=== PATIENT | male | born 1970 | race Caucasian/White ===

== ENCOUNTER 2018-04-15 21:36 | Emergency (ER) | payer SELFPAY ==
[~2018-04-15] VITALS: Ht 182.9 cm; Wt 69.0 kg
[~2018-04-15 21:36] MED LIST: BACT800T5 PO
[2018-04-15 21:45] VITALS: BP 163/100; PULSE 111; RESP 18; TEMP 98.7
[2018-04-15] MEDS ORDERED: SODIUM CHLOR 0.9% 1000 ML INJ 1,000 ML IV ONE (22:10)
--- NOTE | 2018-04-15 22:11 | PD ---
HPI Chief Complaint: Fall Time Seen by Provider: 21:51 Travel History International Travel<30 days: No Contact w/Intl Traveler<30days: No Traveled to known affect area: No History of Present Illness HPI 47-year-old male with history of hypertension, alcohol dependence, seizures in the past related to alcohol withdrawal, presents emergency department by [facility] for evaluation following a witnessed fall and possible seizure-like activity. Patient did strike his head. He does not recall the incident. He reports no pain. He reports no nausea, vomiting, focal deficits, or weakness. Patient states he did not drink alcohol today because he was working. He denies any other illicit drug use. He has no other symptoms to report at this time. FOR[facility]LY [facility] Past Medical History Cardiovascular Problems: Yes (HTN) Diabetes: No Patient Takes Glucophage: No Diminished Hearing: No Hypertension: Yes Immunizations Current: Yes Seizures: Yes Tetanus Vaccination: Unknown Influenza Vaccination: No Past Surgical History Tonsillectomy: Yes Social History Alcohol Use: Yes (SOCIAL) Tobacco Use: No Substance Use: Yes (HX CANNABIS) Allergies-Medications (Allergen,Severity, Reaction): Coded Allergies: No Known Allergies (Verified Adverse Reaction, Unknown, 04/15/18) Reported Meds & Prescriptions Reported Meds & Active Scripts Active No Active Prescriptions or Reported Medications Review of Systems Except as stated in HPI: all other systems reviewed are Neg Physical Exam Narrative GENERAL: Well-nourished male patient in no acute distress. Patient is oriented 3. SKIN: Focused skin assessment warm/dry. HEAD: Atraumatic. Normocephalic. EYES: Pupils equal. Left pupil is misshapen. No scleral icterus. No injection or drainage. EOMI ENT: No nasal bleeding or discharge. Mucous membranes pink and moist. NECK: Trachea midline. No JVD. Cervical collar is in place CARDIOVASCULAR: Tachycardic rate and rhythm. No murmur appreciated. RESPIRATORY: No accessory muscle use. Clear to auscultation. Breath sounds equal bilaterally. GASTROINTESTINAL: Abdomen soft, non-tender, nondistended. Hepatic and splenic margins not palpable. MUSCULOSKELETAL: No obvious deformities. No clubbing. No cyanosis. No edema. 5+ strength equal bilateral extremities. Sensation intact distal extremities. NEUROLOGICAL: Awake and alert. No obvious cranial nerve deficits. Motor grossly within normal limits. Normal speech. Data Data Last Documented VS Vital Signs Date Time Temp Pulse Resp B/P (MAP) Pulse Ox O2 Delivery O2 Flow Rate FiO2 04/15/18 21:45 98.7 111 18 163/100 (121) Orders Orders Complete Blood Count With Diff (04/15/18 22:10) Alcohol (Ethanol) (04/15/18 22:10) Drug Screen, Random Urine (04/15/18 22:10) Electrocardiogram (04/15/18 ) Ct Brain W/O Iv Contrast(Rout) (04/15/18 ) Blood Glucose (04/15/18 22:10) Ecg Monitoring (04/15/18 22:10) Iv Access Insert/Monitor (04/15/18 22:10) Oximetry (04/15/18 22:10) Comprehensive Metabolic Panel (04/15/18 22:10) Sodium Chlor 0.9% 1000 Ml Inj (Ns 1000 M (04/15/18 22:10) Sodium Chloride 0.9% Flush (Ns Flush) (04/15/18 22:15) Ct Cerv Spine W/O Contrast (04/15/18 ) Labs Laboratory Tests Test 04/15/18 22:19 MDM Medical Decision Making Medical Screen Exam Complete: Yes Emergency Medical Condition: Yes Medical Record Reviewed: Yes Differential Diagnosis Electrolyte abnormality versus cardiac etiology versus minor head injury versus intracranial hemorrhage versus seizure disorder versus alcohol withdrawal Narrative Course 47-year-old male presents emergency department for evaluation following a witnessed fall with possible seizure-like activity. Patient does not recall the event. He is oriented 3 moves all extremities with no focal deficits or weakness. Imaging study and basic lab work is ordered. 2300 patient is signed out to my attending physician who will assume complete care at this time. Disposition will depend her judgment. Scripts No Active Prescriptions or Reported Meds Condition: Jagjit MessinaShelli pugh ALIZE April 15, 2018 22:11
[2018-04-15] MEDS ORDERED: SODIUM CHLORIDE 0.9% FLUSH 10 ML FLUSH IVF PRN (22:15)
[2018-04-15 22:38] LABS: BASOPHIL # 0.1 TH/MM3 (0-0.2); BASOPHIL % 1.1 % (0.0-2.0); EOSINOPHIL % 0.3 % (0.0-4.0); HEMATOCRIT 43.7 % (39.0-51.0); LYMPH % 9.4 % (9.0-44.0); MEAN CELL VOLUME 94.4 FL (80.0-100.0); MEAN CORPUSCULAR HEMOGLOBIN 32.3 PG (27.0-34.0); MEAN CORPUSCULAR HGB CONC 34.2 % (32.0-36.0); MONO % 8.6 % (0.0-8.0); NEUT % 80.6 % (16.0-70.0); PLATELET COUNT 171 TH/MM3 (150-450); RED BLOOD COUNT 4.63 MIL/MM3 (4.50-5.90); RED CELL DISTRIBUTION WIDTH 14.5 % (11.6-17.2); WHITE BLOOD COUNT 11.2 TH/MM3 (4.0-11.0)
[2018-04-15 22:57] LABS: ALT (GPT) 177 U/L (12-78); AST (GOT) 147 U/L (15-37); BICARBONATE 23.4 MEQ/L (21.0-32.0); BLOOD UREA NITROGEN 9 MG/DL (7-18); CALCIUM 9.6 MG/DL (8.5-10.1); CHLORIDE 94 MEQ/L (98-107); CREATININE 0.95 MG/DL (0.60-1.30); GLOMERULAR FILTRATION RATE 85 ML/MIN (>89); GLUCOSE,RANDOM 100 MG/DL (74-106); SODIUM (NA) 133 MEQ/L (136-145)
[2018-04-15 23:00] LABS: ALKALINE PHOSPHATASE 49 U/L (45-117); TOTAL BILIRUBIN ADULT 1.8 MG/DL (0.2-1.0); TOTAL PROTEIN 8.1 GM/DL (6.4-8.2)
--- NOTE | 2018-04-15 23:29 | RADRPT ---
EXAM DATE/TIME: 04/15/2018 23:07 [facility] COMPARISON: No previous studies available for comparison. INDICATIONS : Trauma, seizure, fall. RADIATION DOSE: 56.35 CTDIvol (mGy) MEDICAL HISTORY : Seizures. Hypertension. SURGICAL HISTORY : None. ENCOUNTER: Initial ACUITY: 1 day PAIN SCALE: 5/10 LOCATION: cranial TECHNIQUE: Multiple contiguous axial images were obtained of the head. Using automated exposure control and adj ustment of the mA and/or kV according to patient size, radiation dose was kept as low as reasonably a chievable to obtain optimal diagnostic quality images. DICOM format image data is available electro nically for review and comparison. FINDINGS: CEREBRUM: The ventricles are normal for age. No evidence of midline shift, mass lesion, hemorrhage or acute in farction. No extra-axial fluid collections are seen. POSTERIOR FOSSA: The cerebellum and brainstem are intact. The 4th ventricle is midline. The cerebellopontine angle i s unremarkable. EXTRACRANIAL: The visualized portion of the orbits is intact. SKULL: The calvaria is intact. No evidence of skull fracture. CONCLUSION: Normal examination for a patient of this age. Logan Saucedo MD on April 15, 2018 at 23:26 Board Certified Radiologist. This report was verified electronically.
--- NOTE | 2018-04-15 23:31 | RADRPT ---
EXAM DATE/TIME: 04/15/2018 23:07 [facility] COMPARISON: No previous studies available for comparison. INDICATIONS : Trauma, seizure, fall. RADIATION DOSE: 18.00 CTDIvol (mGy) MEDICAL HISTORY : Seizures. Hypertension. SURGICAL HISTORY : None. ENCOUNTER: Initial ACUITY: 1 day PAIN SCALE: 5/10 LOCATION: neck TECHNIQUE: Volumetric scanning of the cervical spine was performed. Multiplanar reconstructions in the sagittal, coronal and oblique axial planes were performed. Using automated exposure control and adjustment o f the mA and/or kV according to patient size, radiation dose was kept as low as reasonably achievable to obtain optimal diagnostic quality images. DICOM format image data is available electronically f or review and comparison. FINDINGS: VERTEBRAE: Normal vertebral body height. ALIGNMENT: No evidence of subluxation. C2-C3: The bony spinal canal is normal in size. No evidence of disc bulge or herniation. The neural forami na are bilaterally patent. C3-C4: The bony spinal canal is normal in size. No evidence of disc bulge or herniation. The neural forami na are bilaterally patent. C4-C5: The bony spinal canal is normal in size. No evidence of disc bulge or herniation. The neural forami na are bilaterally patent. C5-C6: The bony spinal canal is normal in size. No evidence of disc bulge or herniation. The neural forami na are bilaterally patent. C6-C7: The bony spinal canal is normal in size. No evidence of disc bulge or herniation. The neural forami na are bilaterally patent. C7-T1: The bony spinal canal is normal in size. No evidence of disc bulge or herniation. The neural forami na are bilaterally patent. CONCLUSION: Normal examination for a patient of this age. Logan Saucedo MD on April 15, 2018 at 23:28 Board Certified Radiologist. This report was verified electronically.
--- NOTE | 2018-04-16 00:18 | PD ---
Data Data Last Documented VS Vital Signs Date Time Temp Pulse Resp B/P (MAP) Pulse Ox O2 Delivery O2 Flow Rate FiO2 04/15/18 21:45 98.7 111 18 163/100 (121) Orders Orders Complete Blood Count With Diff (04/15/18 22:10) Alcohol (Ethanol) (04/15/18 22:10) Drug Screen, Random Urine (04/15/18 22:10) Electrocardiogram (04/15/18 ) Ct Brain W/O Iv Contrast(Rout) (04/15/18 ) Blood Glucose (04/15/18 22:10) Ecg Monitoring (04/15/18 22:10) Iv Access Insert/Monitor (04/15/18 22:10) Oximetry (04/15/18 22:10) Comprehensive Metabolic Panel (04/15/18 22:10) Sodium Chlor 0.9% 1000 Ml Inj (Ns 1000 M (04/15/18 22:10) Sodium Chloride 0.9% Flush (Ns Flush) (04/15/18 22:15) Ct Cerv Spine W/O Contrast (04/15/18 ) Labs Laboratory Tests Test 04/15/18 22:19 04/15/18 22:39 White Blood Count 11.2 TH/MM3 Red Blood Count 4.63 MIL/MM3 Hemoglobin 15.0 GM/DL Hematocrit 43.7 % Mean Corpuscular Volume 94.4 FL Mean Corpuscular Hemoglobin 32.3 PG Mean Corpuscular Hemoglobin Concent 34.2 % Red Cell Distribution Width 14.5 % Platelet Count 171 TH/MM3 Mean Platelet Volume 9.0 FL Neutrophils (%) (Auto) 80.6 % Lymphocytes (%) (Auto) 9.4 % Monocytes (%) (Auto) 8.6 % Eosinophils (%) (Auto) 0.3 % Basophils (%) (Auto) 1.1 % Neutrophils # (Auto) 9.0 TH/MM3 Lymphocytes # (Auto) 1.0 TH/MM3 Monocytes # (Auto) 1.0 TH/MM3 Eosinophils # (Auto) 0.0 TH/MM3 Basophils # (Auto) 0.1 TH/MM3 CBC Comment DIFF FINAL Differential Comment Blood Urea Nitrogen 9 MG/DL Creatinine 0.95 MG/DL Random Glucose 100 MG/DL Total Protein 8.1 GM/DL Albumin 4.0 GM/DL Calcium Level 9.6 MG/DL Alkaline Phosphatase 49 U/L Aspartate Amino Transf (AST/SGOT) 147 U/L Alanine Aminotransferase (ALT/SGPT) 177 U/L Total Bilirubin 1.8 MG/DL Sodium Level 133 MEQ/L Potassium Level 4.2 MEQ/L Chloride Level 94 MEQ/L Carbon Dioxide Level 23.4 MEQ/L Anion Gap 16 MEQ/L Estimat Glomerular Filtration Rate 85 ML/MIN Ethyl Alcohol Level LESS THAN 3 MG/DL Urine Opiates Screen NEG Urine Barbiturates Screen NEG Urine Amphetamines Screen NEG Urine Benzodiazepines Screen NEG Urine Cocaine Screen NEG Urine Cannabinoids Screen NEG MDM Supervised Visit with FRANCINE: Yes Narrative Course The history, exam, and medical decision-making in the associated midlevel provider note were completed with my assistance. I reviewed and agree with the findings presented. I attest that I had a [id number] encounter with the patient on the same day, and personally performed and documented my assessment and findings in the medical record. *My assessment and Findings: This is a 47-year-old male who presents to the emergency department having had a seizure in the setting of alcohol withdrawal hitting his head. CT is reassuring and labs are unremarkable. Patient has a benign exam. He appears well currently with normal vital signs and I think is appropriate for discharge. Diagnosis Primary Impression: Seizure due to alcohol withdrawal Qualified Codes: F10.230 - Alcohol dependence with withdrawal, uncomplicated Patient Instructions: General Instructions Additional Instruction: Follow up with Luís Floyd in regards to psychiatric or substance related issues at: [address] [place], [place] [id number] Med/Other Pt SpecificInfo: No Change to Meds Scripts No Active Prescriptions or Reported Meds Disposition: 01 DISCHARGE HOME Condition: Stable Micaela Alas MD April 16, 2018 00:18
--- NOTE | 2018-04-16 13:43 | EKG ---
Date Performed: 04/15/2018 Time Performed: 22:41:55 PTAGE: 47 years EKG: SINUS TACHYCARDIA ABNORMAL RHYTHM ECG NO PREVIOUS TRACING DOCTOR: Chace Emerson Interpretating Date/Time 04/16/2018 13:41:33
== END 2018-04-16 01:14 | disposition home or self-care (01) ==
LOC: NEPC 21:36
DX: F10.230 Alcohol dependence with withdrawal, uncomplicated (principal); Y90.0 Blood alcohol level of less than 20 mg/100 ml
CPT/HCPCS: 70450; 72125; 80053; 80307; 85025; 93005; 96360; 96361; 99285; J7030